=== PATIENT | female | born 1960 | race Caucasian/White ===

== ENCOUNTER 2024-06-07 15:04 | Emergency (ER) | payer MEDICAID, OTHER ==
[~2024-06-07] VITALS: Ht 157.5 cm; Wt 86.0 kg
[2024-06-07 15:05] VITALS: O2SAT 99
[2024-06-07] MEDS: IBUPROFEN 800MG TABLET PO ONE (15:35)
[2024-06-07] MEDS: ACETAMINOPHEN 325MG TABLET PO ONE (15:35)
[2024-06-07] MEDS ORDERED: IBUP-2028 MT (17:42)
[2024-06-07] MEDS ORDERED: ACET-2708 MT (17:42)
[2024-06-07 20:10] VITALS: BP 137/82; PULSE 97; RESP 18; TEMP 36.89184; O2SAT 99
== END 2024-06-07 20:11 | disposition home or self-care (01) ==
LOC: ER 15:04
DX: M79.602 Pain in left arm (principal); E11.9 Type 2 diabetes mellitus without complications; V89.2XXA Person injured in unspecified motor-vehicle accident, traffic, initial encounter; Y93.89 Activity, other specified; Y92.89 Other specified places as the place of occurrence of the external cause; Y99.8 Other external cause status
CPT/HCPCS: 29125; 29240; 72040; 73110; 73562; 73610; 99284